=== PATIENT | male | born 1985 ===

== ENCOUNTER 2017-05-12 23:33 | Emergency (ER) | payer SELFPAY ==
[2017-05-12 23:43] VITALS: BP 111/69; PULSE 64; RESP 18; TEMP 97.7; O2SAT 99
--- NOTE | 2017-05-12 23:56 | ED PDOC ---
HPI: Male Pain Time Seen by Provider: 05/12/17 23:45 Chief Complaint (Nursing): Male Genitourinary History Per: Patient, Other (sexual partner) Additional Complaint(s): Pt. states for the past several days he's had a pruritic rash to his R scrotal area and on his penile shaft. Pt. states his girlfriend just got over a yeast infection. Further states he has been scratching his penis more and he believes he sustained a wound to the shaft due to the scratching. Denies dysuria, hematuria, testicular pain and swelling, penile discharge, blisters. Also states that he began using a new baby wipe the day before the onset of the rash. Past Medical History Reviewed: Historical Data, Nursing Documentation, Vital Signs Vital Signs: Last Vital Signs Temp 97.7 F 05/12/17 23:40 Pulse 64 05/12/17 23:40 Resp 18 05/12/17 23:40 BP 111/69 05/12/17 23:40 Pulse Ox 99 05/12/17 23:40 - Family History Family History: States: No Known Family Hx - Home Medications Home Medications: Ambulatory Orders Medication Instructions Recorded Nystatin/Triamcinolone [Mycolog 1 appl TP BID #1 tube 05/12/17 Cream] - Allergies Allergies/Adverse Reactions: Allergies Allergy/AdvReac Type Severity Reaction Status Date / Time No Known Allergies Allergy Verified 05/12/17 23:40 Review of Systems ROS Statement: Except As Marked, All Systems Reviewed And Found Negative Physical Exam - Physical Exam Appears: Positive for: Well, Non-toxic, No Acute Distress Skin: Positive for: Normal Color, Warm, DRY Gastrointestinal/Abdominal: Positive for: Normal Exam, Soft. Negative for: Tenderness Male Genital Exam: Positive for: other (moderate scaling noted to the R scrotal area and to the anterior penile shaft with some scabing and excoriationts noted but no surrounding erythema or vesicles). Negative for: no hernia, epididymal tenderness, inguinal tenderness, scrotum tenderness (R), scrotum tenderness (L) , testicular tenderness (R), testicular tenderness (L), urethral discharge Extremity: Positive for: Normal ROM - ECG O2 Sat by Pulse Oximetry: 99 Disposition - Clinical Impression Clinical Impression: Tinea cruris - Patient ED Disposition Is Patient to be Admitted: No - Disposition Referrals: [facility] [Outside] [facility] [Outside] Disposition: Routine/Home Disposition Time: 23:58 Condition: STABLE Prescriptions: Nystatin/Triamcinolone [Mycolog Cream] 1 appl TP BID #1 tube Instructions: Nicko [place] (ED) Forms: [employer] (Welsh)
== END 2017-05-13 00:25 | disposition home or self-care (01) ==
LOC: H.ER 23:33
DX: B35.6 Tinea cruris (principal)

== ENCOUNTER 2017-08-15 08:51 | Emergency (ER) | payer MEDICAID ==
[2017-08-15 09:13] VITALS: BP 120/69; PULSE 68; RESP 18; TEMP 98; O2SAT 96
[2017-08-15] MEDS ORDERED: Albuterol 0.083% Inhal Sol (2.5 mg/3 mL) UD INH ONE (09:49)
--- NOTE | 2017-08-15 10:48 | ED PDOC ---
HPI: General Adult Time Seen by Provider: 08/15/17 09:10 Chief Complaint (Nursing): Male Genitourinary Chief Complaint (Provider): Male Genitourinary History Per: Patient History/Exam Limitations: no limitations Additional Complaint(s): Lizandro is a 31 year old male who presents to the emergency department for medical evaluation. Patient states finance had yeast infection 1 month ago and was treated. Patient admits to also having yeast infection, but was also treated and was prescribed a cream. that all resolved. Patient is requesting antibiotics for bacterial vaginosis because fiance just diagnosed with BV. Denies pain and discharge. PMD: No Family Provider Past Medical History Reviewed: Historical Data, Nursing Documentation, Vital Signs Vital Signs: Last Vital Signs Temp 98 F 08/15/17 09:09 Pulse 68 08/15/17 09:09 Resp 18 08/15/17 09:09 BP 120/69 08/15/17 09:09 Pulse Ox 96 08/15/17 11:17 - Medical History Other PMH: Yeast infection - Surgical History Surgical History: No Surg Hx - Family History Family History: States: Unknown Family Hx - Social History Current smoker - smoking cessation education provided: No Alcohol: None Drugs: Denies - Home Medications Home Medications: Ambulatory Orders Medication Instructions Recorded Nystatin/Triamcinolone [Mycolog 1 appl TP BID #1 tube 05/12/17 Cream] Metronidazole [Flagyl] 500 mg PO BID #14 tablet 08/15/17 - Allergies Allergies/Adverse Reactions: Allergies Allergy/AdvReac Type Severity Reaction Status Date / Time No Known Allergies Allergy Verified 05/12/17 23:40 Review of Systems ROS Statement: Except As Marked, All Systems Reviewed And Found Negative Genitourinary Male: Negative for: Dysuria, Penile Discharge Physical Exam - Reviewed Nursing Documentation Reviewed: Yes Vital Signs Reviewed: Yes - Physical Exam Appears: Positive for: Non-toxic Skin: Positive for: Normal Color Respiratory: Positive for: Respiratory Distress Male Genital Exam: Positive for: normal genitalia Neurologic/Psych: Positive for: Alert, Oriented (x 3) - ECG O2 Sat by Pulse Oximetry: 96 (RA) Pulse Ox Interpretation: Normal Medical Decision Making Medical Decision Making: Time: 09:55 Plan: - Family Service Caseworker piter caballero was present during exam. - Chlamydia/GC RNA, TMA Time: 11:10 Patient is going home with rx Flagyl to prevent bacterial vaginosis. i Upon provider evaluation patient is medically stable, and requires no further treatment in the ED at this time. Patient will be discharged with Rx Flagyl. Counseling was provided and all questions were answered regarding diagnosis and need for follow up with PCP. There is agreement to discharge plan. Return if symptoms persist or worsen. Scribe Attestation: Documented by Lucho Neff, acting as a scribe for Yosi Galloway MD Provider Scribe Attestation: All medical record entries made by the Scribe were at my direction and personally dictated by me. I have reviewed the chart and agree that the record accurately reflects my personal performance of the history, physical exam, medical decision making, and the department course for this patient. I have also personally directed, reviewed, and agree with the discharge instructions and disposition. Disposition - Clinical Impression Clinical Impression: Sexually transmitted disease exposure - Patient ED Disposition Is Patient to be Admitted: No - Disposition Referrals: [facility] [Outside] [facility] [Outside] FAMILY PROVIDER,NO [Primary Care Provider] - Disposition: Routine/Home Disposition Time: 10:10 Condition: IMPROVED Additional Instructions: follow up with your primary doctor to get further STD workup return to the ED with any worsening or concerning symptoms Prescriptions: Metronidazole [Flagyl] 500 mg PO BID #14 tablet Instructions: Sexually Transmitted Diseases (ED), Safe Sex (ED) Forms: [employer] (Belarusian)
== END 2017-08-15 11:18 | disposition home or self-care (01) ==
LOC: SUPCPDRO 08:51 → H.ER 08:51
DX: Z20.2 Contact with and (suspected) exposure to infections with a predominantly sexual mode of transmission (principal)

== ENCOUNTER 2018-11-10 17:09 | Emergency (ER) | payer MEDICAID ==
[2018-11-10 17:25] VITALS: BP 131/81; PULSE 65; RESP 18; TEMP 98; O2SAT 97
--- NOTE | 2018-11-10 17:59 | ED PDOC ---
HPI: Male Pain Time Seen by Provider: 11/10/18 17:45 Chief Complaint (Nursing): Male Genitourinary History Per: Patient Onset/Duration Of Symptoms: Days (2) Current Symptoms Are (Timing): Still Present Severity: Moderate Quality Of Discomfort: Other (itching/burning) Alleviating Factors: None Additional Complaint(s): Rash, itching and burning to testicular area x 2 days. No penile discharge. No fever. Noted slight rash on shaft also. Past Medical History Vital Signs: Last Vital Signs Temp 98.0 F 11/10/18 17:24 Pulse 65 11/10/18 17:24 Resp 18 11/10/18 17:24 BP 131/81 11/10/18 17:24 Pulse Ox 97 11/10/18 17:24 - Medical History PMH: No Chronic Diseases Denies: Sexually Transmitted Disease - Surgical History Surgical History: Tonsillectomy - Family History Family History: States: Unknown Family Hx - Home Medications Home Medications: Ambulatory Orders Medication Instructions Recorded Nystatin/Triamcinolone [Mycolog 1 appl TP BID #1 tube 05/12/17 Cream] Metronidazole [Flagyl] 500 mg PO BID #14 tablet 08/15/17 Nystatin/Triamcinolone [Mycolog 1 appl TP TID #1 tube 11/10/18 Cream] - Allergies Allergies/Adverse Reactions: Allergies Allergy/AdvReac Type Severity Reaction Status Date / Time No Known Allergies Allergy Verified 05/12/17 23:40 Review of Systems Constitutional: Negative for: Fever Genitourinary Male: Positive for: Rash Skin: Positive for: Rash Physical Exam - Physical Exam Appears: Positive for: Non-toxic, No Acute Distress Skin: Positive for: Rash Male Genital Exam: Positive for: other (Erythemetous rash on scroyum. No vesicles. No penile discharge. No testicular masses. ? rash right side of shaft, no vesicles.) - ECG O2 Sat by Pulse Oximetry: 97 Disposition - Clinical Impression Clinical Impression: [place]o [place] - Patient ED Disposition Is Patient to be Admitted: No Counseled Patient/Family Regarding: Diagnosis, Need For Followup, Rx Given - Disposition Referrals: [facility] [Outside] Disposition: Routine/Home Disposition Time: 17:59 Condition: FAIR Prescriptions: Nystatin/Triamcinolone [Mycolog Cream] 1 appl TP TID #1 tube Instructions: Nicko [place]
== END 2018-11-10 18:11 | disposition home or self-care (01) ==
LOC: H.ER 17:09
DX: B35.6 Tinea cruris (principal)